=== PATIENT | male | born 1935 | race Caucasian/White ===

== ENCOUNTER → 2024-08-30 | Outpatient (CLI) | payer MEDICARE, OTHER, SELFPAY ==
--- NOTE | 2024-08-30 13:07 | NEURO ---
NCS and/or EMG Patient Report Ordering Doctor: Kevan Holbrook DATE OF SERVICE: 08/30/24 Heath presents complaints of numbness around the left ankle and intermittent weakness in the left leg. Electrodiagnostic findings: Peroneal and tibial motor responses could not be obtained. Absent sural and superficial peroneal responses. H?reflex is prolonged bilaterally. It was noted that the patient had 2+ pitting edema in both lower limbs which may have affected ability to obtain responses. Needle EMG testing was performed in the lower limbs. Motor units of increased amplitude and duration were noted in the left gastrocnemius and left peroneus longus. Electrodiagnostic Impression: This is an abnormal study. 1. 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 However, would consider potential repeat of the electrodiagnostic examination if lower extremity swelling resolves. 2. There is no electrodiagnostic evidence for lumbosacral radiculopathy Multi Select Codes Neurology Neurology Interp Codes: 28476-00 Musc test done w/n test comp (interp) (2) and 27117-13 Nrv cndj test 9-10 studies (interp)
--- NOTE | 2024-08-30 13:07 | NEURO ---
NCS and/or EMG Patient Report Ordering Doctor: Kevan Holbrook DATE OF SERVICE: 08/30/24 Heath presents complaints of numbness around the left ankle and intermittent weakness in the left leg. Electrodiagnostic findings: Peroneal and tibial motor responses could not be obtained. Absent sural and superficial peroneal responses. H?reflex is prolonged bilaterally. It was noted that the patient had 2+ pitting edema in both lower limbs which may have affected ability to obtain responses. Needle EMG testing was performed in the lower limbs. Motor units of increased amplitude and duration were noted in the left gastrocnemius and left peroneus longus. Electrodiagnostic Impression: This is an abnormal study. 1. 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 However, would consider potential repeat of the electrodiagnostic examination if lower extremity swelling resolves. 2. There is no electrodiagnostic evidence for lumbosacral radiculopathy Multi Select Codes Neurology Neurology Interp Codes: 26064-03 Musc test done w/n test comp (interp) (2) and 37900-23 Nrv cndj test 9-10 studies (interp)
== END | disposition home or self-care (01) ==
LOC: PSN 08:23
PROVIDERS: PCP Family Medicine; Referring Provider Orthopaedic Surgery Orthopaedic Surgery of the Spine; Visit Provider Orthopaedic Surgery Orthopaedic Surgery of the Spine
DX: R20.2 Paresthesia of skin (principal); R20.0 Anesthesia of skin
CPT/HCPCS: 95886; 95911